=== PATIENT | male | born 1960 | race Caucasian/White ===

== ENCOUNTER 2020-11-21 07:10 | Day surgery (SDC) | payer MEDICARE ==
[~2020-11-21] VITALS: Ht 185.4 cm; Wt 134.0 kg
[2020-11-21] VITALS (7 sets, daily range): BP systolic 147–184; BP diastolic 85–106
[~2020-11-21 07:10] MED LIST: AMLO10TA13 PO; ASPI-1265 PO; ATOR20TA66 PO; CLON-330 PO; CLOP75TA15 PO; CLOP75TA34 PO; DOCUMENT DATE & TIME OF BETA-BLOCKER PO ONE; FLUO40CA PO; GLIP5TAB13 PO; HYDR-3968 PO; LABE200T5 PO; LOSA1TAB39 PO; METF-438 PO; TERA5CAP4 PO; ceFAZolin 1GM/D5W- ADD-VANTAGE 50 ML IV ONE; cefazolin/dext.iso 2gm/100ml IV ONE; famotidine 20mg tablet PO ONE; ringers solution, lacted 1,000 ML IV SCH
[2020-11-21] MEDS ORDERED: BUPIVAcaine/PF 2.5 mg/ml (0.25%) 30ml vial ONE (09:05)
[2020-11-21 09:40] LABS: BASOPHILS # (AUTO) 0.1 X10'3 (0-0.2); EOSINOPHILS # (AUTO) 0.3 X10'3 (0-0.9); EOSINOPHILS % (AUTO) 3.4 % (0-6); LYMPHOCYTES # (AUTO) 2.6 X10'3 (1.1-4.8); LYMPHOCYTES % (AUTO) 32.9 % (21-51); MEAN CORPUSCULAR HEMOGLOBIN 31.2 PG (27.0-31.0); MEAN CORPUSCULAR HGB CONC 34.2 g/dL (33.0-36.5); MEAN CORPUSCULAR VOLUME 91.5 FL (78-98); MEAN PLATELET VOLUME 8.7 FL (7.4-10.4); MONOCYTES # (AUTO) 0.6 X10'3 (0-0.9); MONOCYTES % (AUTO) 7.7 % (2-12); NEUTROPHILS # (AUTO) 4.4 X10'3 (1.8-7.7); PRE OP HEMATOCRIT 43.2 % (42.0-52.0); PRE OP HEMOGLOBIN 14.7 g/dL (14.0-17.9); PRE OP PLATELET COUNT 217 X10'3 (140-440); RED BLOOD COUNT 4.72 X10'6 (4.70-6.10); RED CELL DISTRIBUTION WIDTH 13.8 % (11.5-14.5)
[2020-11-21 09:51] LABS: PRE OP INR 1.2 INR
[2020-11-21 09:54] LABS: ALBUMIN 3.8 G/DL (3.4-5.0); ALBUMIN/GLOBULIN RATIO 1.1 (1.1-1.5); ALKALINE PHOSPHATASE 56 IU/L (46-116); BLOOD UREA NITROGEN 14 MG/DL (7-18); BUN/CREATININE RATIO 14.4 (5.4-32.0); CALCIUM 8.8 MG/DL (8.5-10.1); CHLORIDE 104 MMOL/L (99-107); CREATININE 0.97 MG/DL (0.60-1.10); PRE OP ALT 58 U/L (30-65); PRE OP ANION GAP 10 (8-16); PRE OP AST 34 U/L (10-37); PRE OP BILIRUB, TOTAL 0.7 MG/DL (0.0-1.0); PRE OP GLUCOSE 199 MG/DL (70-104); PRE OP SODIUM 141 MMOL/L (135-145); TOTAL PROTEIN 7.2 G/DL (6.4-8.2); eGFR 79 ML/MIN
[2020-11-21 10:04] LABS: PRE OP POTASSIUM 2.8 MMOL/L (3.4-5.1)
[2020-11-21] MEDS ORDERED: potassium Cl 40MEQ/1/2NS 520ml 520 ML IV PRN (10:40)
[2020-11-21] MEDS ORDERED: fentaNYL/PF 50MCG/1 ML 2ML syringe ONE (11:33)
[2020-11-21] MEDS ORDERED: midazolam 1 mg/ML 2ml injection ONE (11:34)
[2020-11-21] MEDS ORDERED: rocuronium 10mg/ml inj IV ONE (11:34)
[2020-11-21] MEDS ORDERED: propofol inj 20 ML IV ONE (11:34)
[2020-11-21] MEDS ORDERED: meperidine/PF 25mg/ml syringe IV PRN ×3 (11:40)
[2020-11-21] MEDS ORDERED: ondansetron/PF 4mg/2ml inj IV PRN (11:40)
[2020-11-21] MEDS ORDERED: proCHLORperazine 10 MG/2 ml inj IV PRN (11:40)
[2020-11-21] MEDS ORDERED: ringers solution, lacted 1,000 ML IV SCH (11:40)
[2020-11-21] MEDS ORDERED: morphine 4 MG/ML inj SYRINge IV PRN (11:40)
[2020-11-21] MEDS ORDERED: morphine 2 MG/ML inj. syringe IV PRN (11:40)
[2020-11-21] MEDS ORDERED: bacitracin 15gm ointment TP ONE (12:16)
[2020-11-21] MEDS ORDERED: neostigmine methylsulfate 1 MG/ML 10ml vial ONE ×2 (12:20→12:33)
[2020-11-21] MEDS ORDERED: glycopyrrolate 0.2mg/ml inj ONE (12:33)
--- NOTE | 2020-11-21 12:35 | NUR ---
Received from OR via [facility], accompanied by Anesthesiologist dr bhatia and report given by Anesthesiolgist. PT PLACED ON O2 AND MONITOR, S/P UMBILICAL HR, GENERAL ANESTH, PT HAS 4 LAP SITES WITH STERI STRIPS AND UMBILICAL DRESSING WITH SMALL AMT SANGUINOUS DRAINAGE NOTED, AWAKE, STATING "I ACTUALLY FEEL PRETTY ALERT RIGHT NOW", STATES HAS SOME ABD TENDERNESS, ABD SOFT, ENC DB AND COUGH, PT'S BG IS 211, ANESTHESIA NOT WANTING TO GIVE ANY THING AT THIS TIME. DENIES ANY NAUSEA, WILL CONT TO ASSESS.
[2020-11-21] MEDS ORDERED: HYDROcodone/acetaminophen 10/325mg tab PO ONE (13:15)
== END 2020-11-21 13:45 | disposition home or self-care (01) ==
LOC: PAS 07:10
PROVIDERS: ATTEND Surgery
DX: K42.9 Umbilical hernia without obstruction or gangrene (principal); I10 Essential (primary) hypertension; E11.9 Type 2 diabetes mellitus without complications; F32.9 Major depressive disorder, single episode, unspecified; G47.00 Insomnia, unspecified; E78.5 Hyperlipidemia, unspecified; M19.041 Primary osteoarthritis, right hand; M19.042 Primary osteoarthritis, left hand; E66.01 Morbid (severe) obesity due to excess calories; Z68.39 Body mass index [BMI] 39.0-39.9, adult; Z85.47 Personal history of malignant neoplasm of testis; Z86.73 Personal history of transient ischemic attack (TIA), and cerebral infarction without residual deficits; Z79.01 Long term (current) use of anticoagulants; Z79.899 Other long term (current) drug therapy; Z88.8 Allergy status to other drugs, medicaments and biological substances; Z79.84 Long term (current) use of oral hypoglycemic drugs; Z79.82 Long term (current) use of aspirin; Z91.018 Allergy to other foods; F17.220 Nicotine dependence, chewing tobacco, uncomplicated
CPT/HCPCS: 36415; 49652; 80053; 82948; 85025; 85610; 85730; 93005; C1781; J0690; J2250; J2704; J2710; J3010; J3480; J3490; J7120; A4215; A4618; A7000